=== PATIENT | female | born 1965 | race American Indian/Alaskan Native ===

== ENCOUNTER 2016-12-22 15:17 | Emergency (ER) | payer MEDICAID ==
[2016-12-22 16:09] LABS: Basophils % (Auto) 0.5 % (0.0-1.8); Eosinophils % (Auto) 0.3 % (0.0-4.3); Hematocrit 39.3 % (30.3-42.9); Hemoglobin 12.9 gm/dl (10.1-14.3); Mean Corpuscular HGB Conc 33 % (30-34); Mean Corpuscular Hemoglobin 28 pg (28-32); Mean Corpuscular Volume 84 fl (79-97); Platelet Count 277 K/mm3 (140-440); Red Blood Count 4.68 M/mm3 (3.65-5.03); Red Cell Distribution Width 13.6 % (13.2-15.2); White Blood Count 6.9 K/mm3 (4.5-11.0)
[2016-12-22 16:21] LABS: Anion Gap 20 mmol/L; Blood Urea Nitrogen 10 mg/dL (7-17); Calcium 9.6 mg/dL (8.4-10.2); Carbon Dioxide 25 mmol/L (22-30); Chloride 95.4 mmol/L (98-107); Glucose 92 mg/dL (65-100); Potassium 4.4 mmol/L (3.6-5.0); Sodium 136 mmol/L (137-145)
[2016-12-22] MEDS ORDERED: PROVENTIL IH ONE (17:43)
[2016-12-22] MEDS ORDERED: NACL 0.9% 1000 ML 1,000 ML IV ONE (17:44)
[2016-12-22] MEDS ORDERED: REGLAN IV ONE (17:44)
[2016-12-22] MEDS ORDERED: BENADRYL IV ONE (17:44)
[2016-12-22] MEDS ORDERED: DECADRON IV ONE (17:44)
--- NOTE | 2016-12-22 18:03 | Emergency Department Report ---
ED Chest Pain HPI - General Chief Complaint: Chest Pain Stated Complaint: CHEST PAIN,HEADACHE Time Seen by Provider: 12/22/16 17:24 Source: patient Mode of arrival: Ambulatory Limitations: No Limitations - History of Present Illness Initial Comments: 51 year-old female with past medical history of hypertension presented to the emergency department complaining of chest pain and headache. Patient states onset of symptoms started 1 day prior with chest pain. Chest pain is located anterior wall. Pain is constant. Nonradiating. Worse with coughing. Improves with rest. Patient does admit several days prior she did have dry nonproductive cough that she continues to have. Patient also states she has headache onset just prior to ED arrival. Headache is located frontal area. Nonradiating. Worse with lights and loud signs, improves with quiet and dark rooms. Patient states she does have history of headaches. Today's headache is consistent with previous headaches. Pertinent negatives: Patient denies system : Worse headache of her life". Patient denies thunderclap headache. Patient denies: neurologic deficits, change in vision,. Patient has history or family history of aneurysms. MD Complaint: chest pain -: Gradual, days(s) (1) Onset: during rest Pain Location: other (anterior chest wall ) Pain Radiation: none Severity: moderate Severity scale (0 -10): 6 Quality: aching Consistency: constant Improves With: nothing Worsens With: other (cough ) re: denies: nausea, vomting, dyspnea Other Symptoms: cough. denies: fever, syncope, rash, acid taste in mouth, leg swelling, palpitations - Related Data On Oral Contraceptives: No Previous Rx's Medication Instructions Recorded Last Taken Type ALBUTEROL Inhaler [ProAir HFA 2 puff IH QID PRN #1 inhalation 12/22/16 Unknown Rx Inhaler] Aspirin [Aspirin BABY CHEW TAB] 81 mg PO QDAY #30 tab.chew 12/22/16 Unknown Rx Butalb/Acetaminophen/Caffeine 1 cap PO Q6HR PRN #20 cap 12/22/16 Unknown Rx [Fioricet 50-300-40 mg CAP] predniSONE [Deltasone] 50 mg PO DAILY #4 tablet 12/22/16 Unknown Rx Allergies Allergy/AdvReac Type Severity Reaction Status Date / Time acetaminophen [From Percocet] Allergy Rash Verified 12/22/16 15:24 oxycodone HCl [From Percocet] Allergy Rash Verified 12/22/16 15:24 Penicillins Allergy Rash Verified 12/22/16 15:24 propoxyphene napsylate Allergy Rash Verified 12/22/16 15:24 [From Darvocet-N 100] Heart Score - HEART Score History: Slightly suspicious EKG: Normal Age: 45-65 Risk factors: 1-2 risk factors Troponin: < normal limit HEART Score: 2 ED Review of Systems ROS: Stated complaint: CHEST PAIN,HEADACHE Other details as noted in HPI ED Past Medical Hx - Past Medical History Previous Medical History?: No - Surgical History Additional Surgical History: hysterectomy - Social History Smoking Status: Never Smoker Substance Use Type: None - Medications Home Medications: Home Medications Medication Instructions Recorded Confirmed Last Taken Type ALBUTEROL Inhaler [ProAir HFA 2 puff IH QID PRN #1 inhalation 12/22/16 Unknown Rx Inhaler] Aspirin [Aspirin BABY CHEW TAB] 81 mg PO QDAY #30 tab.chew 12/22/16 Unknown Rx Butalb/Acetaminophen/Caffeine 1 cap PO Q6HR PRN #20 cap 12/22/16 Unknown Rx [Fioricet 50-300-40 mg CAP] predniSONE [Deltasone] 50 mg PO DAILY #4 tablet 12/22/16 Unknown Rx ED Physical Exam - General Limitations: No Limitations ED Course Vital Signs 12/22/16 12/22/16 12/22/16 15:25 16:44 16:45 Temperature 99.3 F Pulse Rate 85 85 Respiratory 18 18 Rate Blood Pressure 158/97 162/97 Blood Pressure [Left] O2 Sat by Pulse 98 99 98 Oximetry 12/22/16 12/22/16 12/22/16 16:50 16:56 17:00 Temperature Pulse Rate 81 79 Respiratory 21 16 22 Rate Blood Pressure 162/97 162/97 152/90 Blood Pressure [Left] O2 Sat by Pulse 100 99 99 Oximetry 12/22/16 12/22/16 12/22/16 17:06 17:10 17:16 Temperature Pulse Rate 84 91 H 82 Respiratory 18 21 17 Rate Blood Pressure 152/90 152/90 152/90 Blood Pressure [Left] O2 Sat by Pulse 98 99 97 Oximetry 12/22/16 12/22/16 12/22/16 17:20 17:26 17:30 Temperature Pulse Rate 78 82 Respiratory 24 18 Rate Blood Pressure 152/90 152/90 156/86 Blood Pressure [Left] O2 Sat by Pulse 99 97 95 Oximetry 12/22/16 12/22/16 12/22/16 17:36 18:00 18:06 Temperature Pulse Rate 80 86 86 Respiratory 19 21 14 Rate Blood Pressure 156/86 166/79 166/79 Blood Pressure [Left] O2 Sat by Pulse 98 97 97 Oximetry 12/22/16 12/22/16 12/22/16 18:10 18:24 19:40 Temperature 98 F Pulse Rate 85 94 H Respiratory 20 20 18 Rate Blood Pressure 166/79 Blood Pressure 161/91 [Left] O2 Sat by Pulse 98 98 98 Oximetry 12/22/16 20:14 Temperature 98 F Pulse Rate 88 Respiratory 18 Rate Blood Pressure Blood Pressure 160/87 [Left] O2 Sat by Pulse 98 Oximetry - Reevaluation(s) Reevaluation #1: 12/22/16 20:05 Patient states symptoms have improved and she is requesting discharge home. RAJAN score - Rajan Score Age > 65: (0) No Aspirin use within the Past 7 Days: (0) No 3 or more CAD Risk Factors: (0) No 2 or more Angina events in past 24 hrs: (0) No Known CAD with more than 50% Stenosis: (0) No Elevated Cardiac Markers: (0) No ST Deviation Greater than 0.5mm: (0) No RAJAN Score: 0 ED Medical Decision Making - Lab Data Result diagrams: 12/22/16 15:49 12/22/16 15:49 - EKG Data -: EKG Interpreted by Or EKG shows normal: sinus rhythm, axis (normal ), intervals (QRS: 83, QTC 397) Rate: normal (83) - EKG Data Interpretation: [facility] - Radiology Data Radiology results: report reviewed, image reviewed CT head: negative CTA HEAD: The anterior posterior circulation are intact no changes that are seen was just aneurysm or other vascular, phonation no acute or focal intracranial abnormalities are identified. Dr Johnson - Medical Decision Making 51 -year-old female presenting to the emergency department with headache, chest pain. 1) chest pain I have low suspicion that this is cardiac in nature given that her troponin was negative x 2 and her pain started after several days of coughing. Pt has low HEART SCORE. Her pain has resolved meds given in the ED. Critical care attestation.: If time is entered above; I have spent that time in minutes in the direct care of this critically ill patient, excluding procedure time. ED Disposition Clinical Impression: Chest pain, Cough, Migraine Disposition: - TO HOME OR SELFCARE Is pt being admited?: No Does the pt Need Aspirin: No Condition: Stable Instructions: Chest Pain (ED) Prescriptions: ALBUTEROL Inhaler [ProAir HFA Inhaler] 2 puff IH QID PRN #1 inhalation PRN Reason: Shortness Of Breath Aspirin [Aspirin BABY CHEW TAB] 81 mg PO QDAY #30 tab.chew Butalb/Acetaminophen/Caffeine [Fioricet 50-300-40 mg CAP] 1 cap PO Q6HR PRN #20 cap PRN Reason: Pain , Severe (7-10) predniSONE [Deltasone] 50 mg PO DAILY #4 tablet Referrals: PRIMARY CARE, [Primary Care Provider] - 2-3 Days KYLEE CHRISTOPHER MD, PHD [Staff Physician] - 2-3 Days JENNYFER ALAMO MD [Staff Physician] - 3-5 Days JUAN REYNOLDS MD [Staff Physician] - 3-5 Days Forms: Work/School Release Form(ED)
[2016-12-22] MEDS ORDERED: NACL ONE (18:13)
--- NOTE | 2016-12-22 18:18 | Cat Scan Report ---
FINAL REPORT PROCEDURE: CT HEAD/BRAIN WO CON TECHNIQUE: Computerized tomography of the head was performed without contrast material. HISTORY: headache COMPARISON: No prior studies are available for comparison. FINDINGS: Brain: Brain density appears normal. No evidence of intracranial hemorrhage. No parenchymal hemorrhage, mass lesions or mass effect are seen. No abnormal extraxial fluid collects or masses are seen. Ventricles: Ventricles are normal size and are midline. Bone Windows: No evidence of skull fracture. Paranasal sinuses: Clear Mastoid air cells: Clear IMPRESSION: Negative exam.
--- NOTE | 2016-12-22 19:16 | Cat Scan Report ---
FINAL REPORT PROCEDURE: CT ANGIO HEAD TECHNIQUE: Computerized tomographic angiography of the head was performed during the IV injection of iodinated nonionic contrast including image processing. The image data was postprocessed using 2-dimensional multiplanar reformatted (MPR) and 3-dimensional (MIP and/or volume rendered) techniques. HISTORY: Headache. Evaluate aneurysm COMPARISON: Unenhanced CT scan of the brain earlier today FINDINGS: Right and left vertebral arteries appear widely patent. The basilar artery and both posterior cerebral arteries show no abnormalities. No evidence of aneurysm. There appears to be a patent right posterior communicating artery. There is minimal calcified plaquing seen in the right carotid siphon. The internal carotid artery otherwise is widely patent. The A1 segment, anterior cerebral artery and middle cerebral artery on the right appear widely patent. No changes are seen that would suggest aneurysm or vascular malformation. The left carotid siphon, left middle cerebral artery left A1 segment and left anterior cerebral artery are also unremarkable. The dural sinuses appear patent. No abnormal areas of enhancement are seen. Paranasal sinuses and the mastoid air cells appear clear. IMPRESSION: The anterior and the posterior circulation are intact. No changes are seen that would suggest aneurysm or other vascular malformation. No acute or focal intracranial abnormalities are identified.
[2016-12-22 20:14] VITALS: BP 160/87
--- NOTE | 2016-12-23 09:16 | XRay Report ---
Chest 2 views: History chronic cough. Findings: Normal cardiomediastinal silhouette. Trachea is midline. No consolidation, pneumothorax or pleural effusion. Impression: No acute cardiopulmonary findings.
== END 2016-12-22 20:46 | disposition home or self-care (01) ==
LOC: ED 15:17
DX: G43.909 Migraine, unspecified, not intractable, without status migrainosus (principal); R07.9 Chest pain, unspecified; R05 Cough; Z88.8 Allergy status to other drugs, medicaments and biological substances; Z88.0 Allergy status to penicillin; Z79.82 Long term (current) use of aspirin
CPT/HCPCS: 36415; 70450; 70496; 71020; 80048; 84484; 85025; 93005; 93010; 96361; 96374; 96375; 99285; J1100; J1200; J2765; J7030; Q9967